=== PATIENT | female | born 1955 | race Two or more races ===

== ENCOUNTER 2021-04-30 17:29 | Emergency (ER) | payer OTHER ==
[~2021-04-30] VITALS: Ht 152.4 cm; Wt 63.5 kg
[2021-04-30 19:14] LABS: Urine Bacteria FEW /hpf (None Seen); Urine Blood Negative /uL (Negative); Urine Mucus FEW (None Seen); Urine WBC 1 /hpf (0 - 5)
[2021-04-30 19:27] LABS: Basophils # (auto) 0 10 ^3/uL (0-0.2); Basophils % (auto) 0.4 % (0.0-2.0); Eosinophils # (auto) 0.1 10 ^3/uL (0-0.8); Eosinophils % (auto) 0.8 % (0.0-7.0); Hematocrit 37.8 % (36.0-46.0); Hemoglobin 12.7 g/dL (12.2-16.2); Lymphocytes # (auto) 3.6 10 ^3/uL (0.4-5.4); Lymphocytes % (auto) 45.4 % (10.0-50.0); Mean Corpuscular Hemoglobin 30.5 pg (28.0-32.0); Mean Corpuscular Hgb Conc. 33.7 g/dL (32.0-36.0); Mean Corpuscular Volume 90.4 fL (80.0-100.0); Monocytes # (auto) 0.5 10 ^3/uL (0-1.3); Monocytes % (auto) 6.3 % (0.0-12.0); Neutrophils # (auto) 3.8 10 ^3/uL (1.6-8.6); Neutrophils % (auto) 47.1 % (37.0-80.0); Red Blood Cells 4.18 10^6/uL (4.0-5.20)
[2021-04-30 19:51] LABS: Albumin 3.7 g/dL (3.4-5.0); Calcium 8.8 mg/dL (8.5-10.1); Potassium 3.5 mmol/L (3.5-5.1)
[2021-04-30 19:55] LABS: Bilirubin, Total 0.3 mg/dL (0.2-1.0)
[2021-04-30 23:57] VITALS: BP 111/56
== END 2021-05-01 01:28 | disposition home or self-care (01) ==
LOC: ER 17:29
DX: N81.4 Uterovaginal prolapse, unspecified (principal); F17.210 Nicotine dependence, cigarettes, uncomplicated; Z90.49 Acquired absence of other specified parts of digestive tract; Z88.8 Allergy status to other drugs, medicaments and biological substances
CPT/HCPCS: 36415; 74176; 80053; 81001; 85025

== ENCOUNTER 2021-06-04 11:43 | Emergency (ER) | payer OTHER ==
[~2021-06-04] VITALS: Ht 152.4 cm; Wt 59.0 kg
[2021-06-04 13:03] LABS: Urine Bacteria NONE SEEN /hpf (None Seen); Urine Blood Negative /uL (Negative); Urine Specific Gravity 1.026 (1.001-1.035); Urine WBC 1 /hpf (0 - 5)
[2021-06-04 13:30] LABS: Basophils # (auto) 0 10 ^3/uL (0-0.2); Basophils % (auto) 0.5 % (0.0-2.0); Eosinophils # (auto) 0 10 ^3/uL (0-0.8); Eosinophils % (auto) 0.7 % (0.0-7.0); Hematocrit 35.9 % (36.0-46.0); Hemoglobin 12.1 g/dL (12.2-16.2); Lymphocytes # (auto) 2.6 10 ^3/uL (0.4-5.4); Lymphocytes % (auto) 40.6 % (10.0-50.0); Mean Corpuscular Hemoglobin 30.2 pg (28.0-32.0); Mean Corpuscular Hgb Conc. 33.6 g/dL (32.0-36.0); Monocytes # (auto) 0.5 10 ^3/uL (0-1.3); Monocytes % (auto) 8.1 % (0.0-12.0); Neutrophils # (auto) 3.2 10 ^3/uL (1.6-8.6); Neutrophils % (auto) 50.1 % (37.0-80.0); Nucleated Red Blood Cells % 0.1 %; Red Blood Cells 3.99 10^6/uL (4.0-5.20); Red Cell Distribution Width 13.7 % (11.8-14.3); White Blood Cell 6.4 10^3/uL (4.4-10.8)
[2021-06-04 13:49] LABS: Alanine Aminotransferase 17 U/L (13-56); Albumin 3.3 g/dL (3.4-5.0); Anion Gap 5 (5-15); Aspartate Aminotransferase 11 U/L (15-37); BUN/Creatinine Ratio 26.8; Blood Urea Nitrogen 15 mg/dL (7-18); Calcium 8.8 mg/dL (8.5-10.1); Carbon Dioxide 28 mmol/L (21-32); Chloride 109 mmol/L (98-107); GFR African American 139 mL/min; GFR Non-African American 115 mL/min; Glucose 92 mg/dL (74-106); Potassium 3.9 mmol/L (3.5-5.1); Sodium 142 mmol/L (136-145)
[2021-06-04 13:54] LABS: Alkaline Phosphatase 89 U/L (45-117); Bilirubin, Total 0.3 mg/dL (0.2-1.0); Total Protein 6.6 g/dL (6.4-8.2)
[2021-06-04 15:10] VITALS: BP 137/65
== END 2021-06-04 15:10 | disposition home or self-care (01) ==
LOC: ER 11:43
DX: R22.43 Localized swelling, mass and lump, lower limb, bilateral (principal); E46 Unspecified protein-calorie malnutrition; F17.210 Nicotine dependence, cigarettes, uncomplicated; Z68.25 Body mass index [BMI] 25.0-25.9, adult; Z90.49 Acquired absence of other specified parts of digestive tract; Z88.8 Allergy status to other drugs, medicaments and biological substances
CPT/HCPCS: 36415; 80053; 81001; 83880; 84484; 85025; 93005; 93970

== ENCOUNTER 2021-09-09 04:27 | Emergency (ER) | payer OTHER ==
[~2021-09-09] VITALS: Ht 152.4 cm; Wt 54.4 kg
[2021-09-09 05:04] VITALS: BP 111/57
[2021-09-09 05:10] LABS: Basophils # (auto) 0.1 10 ^3/uL (0-0.2); Basophils % (auto) 0.9 % (0.0-2.0); Eosinophils # (auto) 0.1 10 ^3/uL (0-0.8); Eosinophils % (auto) 1.6 % (0.0-7.0); Hematocrit 37.8 % (36.0-46.0); Hemoglobin 12.4 g/dL (12.2-16.2); Lymphocytes # (auto) 2.6 10 ^3/uL (0.4-5.4); Lymphocytes % (auto) 38.7 % (10.0-50.0); Mean Corpuscular Hemoglobin 28.5 pg (28.0-32.0); Mean Corpuscular Hgb Conc. 32.8 g/dL (32.0-36.0); Mean Corpuscular Volume 86.9 fL (80.0-100.0); Monocytes # (auto) 0.5 10 ^3/uL (0-1.3); Monocytes % (auto) 7.8 % (0.0-12.0); Neutrophils # (auto) 3.4 10 ^3/uL (1.6-8.6); Red Blood Cells 4.35 10^6/uL (4.0-5.20); Red Cell Distribution Width 14.9 % (11.8-14.3); White Blood Cell 6.6 10^3/uL (4.4-10.8)
[2021-09-09 05:30] LABS: Calcium 8.6 mg/dL (8.5-10.1); Potassium 3.4 mmol/L (3.5-5.1)
[2021-09-09 05:37] LABS: Albumin 3.6 g/dL (3.4-5.0); BUN/Creatinine Ratio 40.4; Bilirubin, Total 0.4 mg/dL (0.2-1.0); Total Protein 7.2 g/dL (6.4-8.2)
[2021-09-09 07:50] LABS: Urine Bacteria NONE SEEN /hpf (None Seen); Urine Blood Negative /uL (Negative); Urine Hyaline Cast FEW /lpf (0 - 2); Urine Mucus FEW (None Seen); Urine Specific Gravity 1.035 (1.001-1.035); Urine WBC 6 /hpf (0 - 5)
[2021-09-09] MEDS ORDERED: NITR-87 PO (08:10)
== END 2021-09-09 08:31 | disposition home or self-care (01) ==
LOC: ER 04:27
DX: N39.0 Urinary tract infection, site not specified (principal); K76.89 Other specified diseases of liver; F17.210 Nicotine dependence, cigarettes, uncomplicated; F12.10 Cannabis abuse, uncomplicated; Z88.6 Allergy status to analgesic agent
CPT/HCPCS: 36415; 71045; 74176; 80053; 81001; 83690; 83880; 84484; 85025; 93005

== ENCOUNTER 2022-02-01 14:32 | Emergency (ER) | payer OTHER ==
[~2022-02-01] VITALS: Ht 152.4 cm; Wt 61.5 kg
[~2022-02-01 14:32] MED LIST: NITR-87 PO
[2022-02-01 15:04] VITALS: BP 132/70
[2022-02-01] MEDS ORDERED: ALBUTEROL SULF 2.5 MG/0.5ML(0.5%) NEB SOLN NEB ONE ×2 (16:30)
[2022-02-01] MEDS ORDERED: IPRATROPIUM BROM 0.5 MG/2.5ML INH SOL NEB ONE ×2 (16:30)
[2022-02-01] MEDS ORDERED: PRED20TA2 PO (16:45)
[2022-02-01] MEDS ORDERED: LEVO500T31 PO (16:45)
[2022-02-01] MEDS ORDERED: PROM1SOL4 PO (16:45)
== END 2022-02-01 16:51 | disposition home or self-care (01) ==
LOC: ER 14:38
DX: J20.9 Acute bronchitis, unspecified (principal); F17.210 Nicotine dependence, cigarettes, uncomplicated; F12.10 Cannabis abuse, uncomplicated
CPT/HCPCS: 71046; 94640; 99283; J7644

== ENCOUNTER 2022-02-06 23:48 | Emergency (ER) | payer OTHER ==
[~2022-02-06] VITALS: Ht 152.4 cm; Wt 75.0 kg
[~2022-02-06 23:48] MED LIST changes: +LEVO500T31 PO; +PRED20TA2 PO; +PROM1SOL4 PO
[2022-02-07] MEDS ORDERED: IPRATROPIUM BROM 0.5 MG/2.5ML INH SOL NEB ONE (01:45)
[2022-02-07] MEDS ORDERED: ALBUTEROL SULF 2.5 MG/0.5ML(0.5%) NEB SOLN NEB ONE (01:45)
[2022-02-07] MEDS ORDERED: BENZ100C19 PO (02:22)
[2022-02-07] MEDS ORDERED: ALBU108A5 IN (02:22)
[2022-02-07] MEDS ORDERED: AZIT250T8 PO (02:36)
[2022-02-07] MEDS ORDERED: LORA-664 PO (02:37)
[2022-02-07 03:05] VITALS: BP 136/87
== END 2022-02-07 03:07 | disposition home or self-care (01) ==
LOC: ER 23:48 → EDUNIT# 23:48 → EDBD 23:48 → ER 02-07 03:07
DX: J06.9 Acute upper respiratory infection, unspecified (principal); B97.89 Other viral agents as the cause of diseases classified elsewhere; F17.210 Nicotine dependence, cigarettes, uncomplicated; F12.90 Cannabis use, unspecified, uncomplicated; Z90.49 Acquired absence of other specified parts of digestive tract
CPT/HCPCS: 93005; 94640; 99283; J7644

== ENCOUNTER 2022-12-22 17:01 | Emergency (ER) | payer MEDICARE, OTHER ==
[~2022-12-22] VITALS: Ht 165.1 cm; Wt 56.0 kg
[~2022-12-22 17:01] MED LIST changes: +ALBU108A5 IN; +AZIT-81 PO; +BENZ100C19 PO; +LORA-1130 PO
[2022-12-22 18:40] LABS: Basophils # (auto) 0 10 ^3/uL (0-0.2); Basophils % (auto) 0.6 % (0.0-2.0); Eosinophils # (auto) 0 10 ^3/uL (0-0.8); Eosinophils % (auto) 0.7 % (0.0-7.0); Hemoglobin 12.4 g/dL (12.2-16.2); Lymphocytes # (auto) 2.5 10 ^3/uL (0.4-5.4); Lymphocytes % (auto) 39.2 % (10.0-50.0); Mean Corpuscular Hemoglobin 29.4 pg (28.0-32.0); Mean Corpuscular Hgb Conc. 32.7 g/dL (32.0-36.0); Monocytes # (auto) 0.4 10 ^3/uL (0-1.3); Monocytes % (auto) 6.1 % (0.0-12.0); Neutrophils # (auto) 3.5 10 ^3/uL (1.6-8.6); Neutrophils % (auto) 53.4 % (37.0-80.0); Red Blood Cells 4.22 10^6/uL (4.0-5.20); Red Cell Distribution Width 14.9 % (11.8-14.3); White Blood Cell 6.5 10^3/uL (4.4-10.8)
[2022-12-22 18:53] LABS: Alanine Aminotransferase 13 U/L (7-40); Albumin 4.5 g/dL (3.2-4.8); Alkaline Phosphatase 81 U/L (46-116); Anion Gap 6 (5-15); Aspartate Aminotransferase 12 U/L (13-40); BUN/Creatinine Ratio 26.9 (10.0-20.0); Blood Urea Nitrogen 18 mg/dL (9-23); Calcium 9.5 mg/dL (8.5-10.1); Carbon Dioxide 29 mmol/L (20-30); Chloride 106 mmol/L (98-107); Glucose 82 mg/dL (74-106); Potassium 3.8 mmol/L (3.5-5.1); Sodium 141 mmol/L (136-145)
[2022-12-22 18:54] LABS: Bilirubin, Total 0.4 mg/dL (0.2-1.0); Total Protein 6.7 g/dL (5.7-8.2)
[2022-12-22 19:00] LABS: INR 0.95 (0.9-1.15); Partial Thromboplastin Time 27.1 SEC (24.5-34.5)
[2022-12-22 19:20] VITALS: BP 113/48; PULSE 81; RESP 15; TEMP 98.4; O2SAT 97
[2022-12-22] MEDS ORDERED: CEFD300C2 PO (19:26)
== END 2022-12-22 20:49 | disposition home or self-care (01) ==
LOC: EDBD 17:01 → ER 17:01
DX: R04.0 Epistaxis (principal); F17.210 Nicotine dependence, cigarettes, uncomplicated; F12.90 Cannabis use, unspecified, uncomplicated; Z79.899 Other long term (current) drug therapy; Z90.49 Acquired absence of other specified parts of digestive tract; Z88.8 Allergy status to other drugs, medicaments and biological substances
CPT/HCPCS: 30901; 36415; 71045; 80053; 85025; 85610; 85730